=== PATIENT | female | born 1995 | race Caucasian/White ===

== ENCOUNTER 2025-03-26 19:33 | Inpatient (IN) ==
--- NOTE | 2025-03-26 20:09 | Obstetrical Progress Note ---
Date of Service March 26, 2025 Assessment & Plan (1) Post-dates : Plan henry placed. tolerated well. Plan to monitor for about 45 minutes and then d/c. Subjective Patient presents for henry bulb for postdates . Was closed in the office. Verbal consent given for the procedure. Physical Exam Physical Exam: cx--/-1, bleeding with check. speculum placed--some blood in the vault, cx visualized and henry threaded through, bulb filled with 30cc sterile water. Speculum removed. tolerated well toco--intermittent, irregular contractions efm--150s with mod variability, no current accels, one variable noted Results & Data Vital Signs (Past 12 Hours) Vital Signs Pulse BP 03/26/25 19:54 62 124/57 L PG Care Time/CCT Total # of Minutes Spent Total Time Spent with Patient: Total time spent is greater than 50% in coordination of care (as documented) at patient's floor/unit and/or counseling patient: Coding Level of Care Code 37009 OP VST EST LOW 20 MIN Diagnoses Post-dates O48.0 CPT Codes Misx Procedure Codes - 51450 Placement of cervical dilator: 60486 Placement of cervical dilator ([id number]) 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
[2025-03-26] MEDS ORDERED: OXYTOCIN 30 UNITS/NSS 30 UNITS/500 ML BAG IV PRN (21:04)
--- NOTE | 2025-03-26 21:09 | History & Physical Report ---
Date of Service March 26, 2025 Assessment & Plan (1) Post-dates : (2) Carrier of group B Streptococcus: Plan Plan to start low dose pit now and see how the baby tolerates. Reassuring intermittent category two strip with intervening category one. When bulb falls out, plan arom. epidural on demand. History of Present Illness Chief Complaint: presents for henry Primary Care Provider: Al Espinosa DO Patient is a 29yowf who presented for henry bulb tonight for planned iol tomorrow for postdates. Henry placed without difficulty. However, subsequent monitoring shows some small variables and only 10x10m accels. There is also a rare decel not always associated with contractions. Good fm. I recommend we proceed with iol now. She is agreeable. and Delivery Plans GBS Positive in Urine *Treat in Labor IOL 03/27/25 OB Labs: Blood Type A Positive 08/19/24 Antibody Screen NEGATIVE 08/19/24 Hgb 12.3 g/dl (12.0-16.0) 12/26/24 Hct 37.3 % (37.0-47.0) 12/26/24 MCV 85.8 fL (80.0-100.0) 08/19/24 Plt Count 286 K/uL (130-400) 08/19/24 Rubella IgG Antibody Immune (Immune) 08/19/24 Treponema pallidum Ab Negative (Negative) 12/26/24 Hep Bs Antigen Negative (Negative) 08/19/24 Hepatitis C Antibody Negative (Negative) 08/19/24 HIV 1&2 Ab/P24 Ag 4thGn Negative (Negative) 08/19/24 Glucose 1 Hr 50 gm 113 mg/dl (70-130) 12/26/24 Maternal Serum AFP 53.3 ng/mL 11/01/24 OB Optional Labs: Chlamydia trachomatis RNA Not Detected (NotDetected) 08/19/24 Neisseria gonorrhoeae RNA Not Detected (NotDetected) 08/19/24 Thyroid Stimulating Hormone (TSH) 0.937 uIu/ml (0.300-4.500) 05/11/23 Alpha Fetoprotein Triple Screen SEE NOTE 11/01/24 gbs positive afp neg low risk panorama Allergies Allergy/AdvReac Type Severity Reaction Status Date / Time No Known Allergies Allergy Verified 03/24/25 13:11 Home Medications Medication Instructions Recorded Confirmed Type omega 1-wqu-chr-fish oil 300 1 cap PO DAILY 11/05/23 03/26/25 History mg-1,000 mg capsule (Fish Oil) PNV [id number] PO DAILY 03/26/25 History Patient History Medical History Surgical defect of lip Age [age]. Surgical repair of lip injury. No known health problems COVID-19 (~11/2020) Surgical History S/P wisdom tooth extraction Family History Father Diabetes Hypertension Other Anxiety Denies family history of Ovarian cancer Prostate cancer Myocardial infarction Breast cancer Colorectal cancer Social History Smoking Status: Never smoker Second Hand Exposure: No; Do You Dip or Chew Tobacco: No; Hx Alcohol Use: Yes Alcohol Intake Frequency: 2-4 x/Month Hx Substance Use: No Preferred Language: Welsh Communication Ability: Effective Visual Impairment: No Limitations Hearing Ability: Normal Materials Handling Coordinator Required: No marital status: Single marital status details: Beaumont (23) [phone] Current Living Situation: Significant Other Current Living Situation Comment: lives with fob, 1 dog. 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 Feels Safe at Home: Yes Safety Concerns: Feels Safe At This Time Childhood Exposure to Second-Hand Smoke: No during the past year weight has: remained stable Dental Care, Regularly: Yes Physical Activity Frequency: 5-6 Times per Week Seatbelt Use: always Sunscreen Use: Yes Assistive Devices: Contacts and Glasses OB History g1--present [employer]NA[employer]ING [employer] History noncontributory Physical Exam Constitutional: WD/WN, vitals as above Cardiovascular: Extremities: no edema Gastrointestinal (Abdomen): soft, gravid, nt Psychiatric: A+Ox3, euthymic affect Genitourinary: cx--henry bulb in toco--intermittent contractions efm--150s with mod variability, small accels, occasional small variable, rare other decel Results & Data Vital Signs (Past 12 Hours) Vital Signs Temp Pulse Resp BP 03/26/25 19:54 62 124/57 L 03/26/25 19:51 36.9 C 16 Coding Level of Care Code None Diagnoses Post-dates O48.0 Carrier of group B Streptococcus Z22.330
[2025-03-26] MEDS: OXYTOCIN 30 UNITS/NSS 30 UNITS/500 ML BAG IV PRN (21:33)
[2025-03-26] MEDS: PENICILLIN GK 6 MU in DEXTROSE 5% 250 ML IV STA (21:35)
[2025-03-26] MEDS: LACTATED RINGER'S 1,000 ML IV PRN (21:35)
[2025-03-26 21:37] LABS: Hematocrit (blood only) 40.0 % (37.0-47.0); Hemoglobin 13.5 g/dL (12.0-16.0); Mean Corpuscular Hemoglobin 28.8 pg (25.0-34.0); Mean Corpuscular Volume 85.3 fL (80.0-100.0); Platelet Count 264 K/uL (130-400); RDW Standard Deviation 40.9 fL (36.4-46.3); Red Blood Count 4.69 M/uL (4.20-5.40); White Blood Count 12.49 K/ul (4.8-10.8)
--- NOTE | 2025-03-27 00:19 | Labor Progress Brief Note ---
Date of Service March 27, 2025 Subjective henry just came out, noting more contractions Assessment & Plan (1) Post-dates : (2) Carrier of group B Streptococcus: Plan continue current plan. Fetus overall category one with occasional variables . Continue to monitor closely. Admission and Anticipated Discharge Date Admission Date: March 26, 2025 Physical Exam Physical Exam: cx--3/80/-2 arom--clear toco--q3-5, pit at 1 efm--140s with mod variability, accels present, +scalp stim, variables noted with some contractions, some may be late in appearance, but not persistent or recurrent Results & Data Vital Signs (Past 12 Hours) Vital Signs Temp Pulse Resp BP 03/26/25 23:00 18 03/26/25 23:00 36.6 C 18 03/26/25 22:50 59 L 116/66 03/26/25 19:54 62 124/57 L 03/26/25 19:51 36.9 C 16 Coding Level of Care Code None Diagnoses Post-dates O48.0 Carrier of group B Streptococcus Z22.330
[2025-03-27] MEDS: PENICILLIN GK 3 MU in DEXTROSE 5% 100 ML IV PRN (01:34)
--- NOTE | 2025-03-27 01:48 | Labor Progress Brief Note ---
Date of Service March 27, 2025 Subjective tolerating contractions Assessment & Plan (1) Post-dates : (2) Carrier of group B Streptococcus: Plan continue current management. epidural on demand, fetus category one. Admission and Anticipated Discharge Date Admission Date: March 26, 2025 Physical Exam Physical Exam: cx--deferred toco--pit at 4, q 2-4min efm--120s with mod variability, accels to 150s, no further decels after rom for clear fluid. Results & Data Vital Signs (Past 12 Hours) Vital Signs Temp Pulse Resp BP 03/27/25 01:00 18 03/27/25 01:00 36.8 C 18 03/27/25 00:51 45 L 92/55 L 03/27/25 00:20 18 03/27/25 00:20 36.8 C 18 03/26/25 23:00 18 03/26/25 23:00 36.6 C 18 03/26/25 22:50 59 L 116/66 03/26/25 19:54 62 124/57 L 03/26/25 19:51 36.9 C 16 Coding Level of Care Code None Diagnoses Post-dates O48.0 Carrier of group B Streptococcus Z22.330
[2025-03-27] MEDS: LIDOCAINE 1% LOCAL 20 ML VIAL INFIL PRN (03:49)
[2025-03-27] MEDS ORDERED: HYDROCORTISONE ACETATE 25 MG SUPP PR PRN (03:59)
[2025-03-27] MEDS ORDERED: OXYTOCIN 30 UNITS/NSS 30 UNITS/500 ML BAG IV PRN (03:59)
--- NOTE | 2025-03-27 04:02 | Delivery Summary ---
Vaginal Delivery Summary Date of Service March 27, 2025 Vaginal Delivery Summary Pre-operative Diagnosis: at 40 5/7 gbs positive Post-operative Diagnosis: same Procedure: henry bulb arom pitocin left labial lac repair QBL: 100 Anesthesia: local lidocaine Procedure: Patient presented for henry bulb for planned postdates iol. bulb placed but fetus had an intermittently category two tracing so iol was initiated with pitocin. When bulb fell out , arom for clear fluid. Strip was then consistently category one. She progressed to c/c/+1 station. The patient pushed for 30 minutes to deliver a viable female in brittanie position. The rest of the infant was then delivered without difficulty. The baby was vigorous. The nose and mouth were bulb suctioned and the infant was placed in the maternal abdomen for drying and attention. Cord was clamped and cut at one minute of life. Cord blood and segment obtained. Placenta delivered spontaneous, intact with a three vessel cord. Cervix/sulci/rectum/perineum were intact. A small left labial laceration was repaired in the normal standard fashion. Hemostasis obtained with dilute pitocin and fundal massage. Apgars were 7/9. Mother and baby doing well at the end of the delivery. [facility] Vaginal Delivery Charge Delivery Type Details:
[2025-03-27] MEDS: ACETAMINOPHEN 325 MG TAB PO PRN (04:13)
[2025-03-27] MEDS: DIPHTHER/TETAN/PERTUS Vaccine (Tdap, Adol/Adult) 0.5mL IM ONE (04:31)
[2025-03-27] MEDS: DOCUSATE SODIUM 100 MG CAP PO SCH (07:54)
[2025-03-27] MEDS: PRENATAL VITAMIN 1 TAB PO SCH (07:54)
[2025-03-27] MEDS: IBUPROFEN 600 MG TAB PO PRN (08:04)
[2025-03-28 07:19] LABS: Hematocrit (blood only) 37.8 % (37.0-47.0); Hemoglobin 12.5 g/dL (12.0-16.0)
[2025-03-28] MEDS: BENZOCAINE 20% SPRY 85 APPLN/85 GM CAN EXT PRN (08:01)
--- NOTE | 2025-03-28 08:36 | Obstetrical Progress Note ---
Date of Service March 28, 2025 Assessment & Plan (1) Post-dates : day #1 no extremity pain doing well continue current care Subjective Ambulation: ambulating normally Voiding: no voiding problems Passing Gas:: Yes Diet Tolerance:: regular diet Lochia:: Small Physical Exam Constitutional WD/WN, vitals as above well developed and well nourished Respiratory normal respiratory effort, lungs clear to auscultation normal respiratory effort Cardiovascular RRR, no murmur, no edema Gastrointestinal (Abdomen) normal bowel sounds, soft, nontender, no hepatosplenomegaly Results & Data Vital Signs (Past 12 Hours) Vital Signs Temp Pulse Resp BP Pulse Ox O2 Del Method 03/28/25 03:55 97.9 F 50 L 18 110/70 97 Room Air 03/27/25 23:58 97.7 F 56 L 18 110/71 97 Room Air
--- NOTE | 2025-03-29 06:31 | Obstetrical Progress Note ---
Date of Service March 29, 2025 Assessment & Plan (1) Post-dates : day #2 Results & Data Vital Signs (Past 12 Hours) Vital Signs Temp Pulse Resp BP Pulse Ox O2 Del Method 03/28/25 23:40 36.7 C 60 18 115/69 97 Room Air 03/28/25 20:25 36.6 C 54 L 18 117/76 99 Room Air
--- NOTE | 2025-03-29 07:20 | Obstetrical Progress Note ---
Date of Service March 29, 2025 Assessment & Plan (1) (spontaneous vaginal delivery): Plan PPD#2 from [facility] DC home today Plan for 6w PPV Admission and Anticipated Discharge Date Admission Date: March 26, 2025 Subjective Doing well, meeting milestones. Review of Systems Review of Systems: All systems reviewed & are unremarkable except as noted in HPI & below Physical Exam Constitutional: WD/WN, vitals as above healthy appearing Respiratory: normal respiratory effort Gastrointestinal (Abdomen): Inspection/Auscultation: abdomen not distended Percussion/Palpation: abdomen soft; abdomen nontender, no guarding and abdomen not rigid Psychiatric: Orientation: alert and oriented x 3 Genitourinary: fundus firm Results & Data Vital Signs (Past 12 Hours) Vital Signs Temp Pulse Resp BP Pulse Ox O2 Del Method 03/28/25 23:40 36.7 C 60 18 115/69 97 Room Air 03/28/25 20:25 36.6 C 54 L 18 117/76 99 Room Air PG Care Time/CCT Total # of Minutes Spent Total Time Spent with Patient: Total time spent is greater than 50% in coordination of care (as documented) at patient's floor/unit and/or counseling patient: Coding Level of Care Code None Diagnoses (spontaneous vaginal delivery) O80
[2025-03-29 08:10] VITALS: BP 121/73; RESP 16; TEMP 97.7; O2SAT 99
[2025-03-29 09:22] VITALS: PULSE 59
== END 2025-03-29 11:35 | disposition home or self-care (01) | DRG 768 ==
LOC: OPB 19:33 → 4S1 19:34 → 4E2 03-27 06:40